=== PATIENT | female | born 1950 | race Caucasian/White ===

== ENCOUNTER 2016-11-24 13:13 | Outpatient (CLI) | payer MEDICARE, OTHER ==
--- NOTE | 2016-11-27 08:26 | Mammography Report ---
DIGITAL SCREENING MAMMOGRAM: 11/24/2016 CLINICAL INDICATION: A 65-year-old for screening. COMPARISON: 02/2013, 02/2011, 10/2009. TECHNIQUE: Routine CC and MLO projections were obtained of the breasts. The breasts again demonstrate scattered fibroglandular densities bilaterally. Coarse and punctate, t ypically benign calcifications are present. No suspicious masses, clustered microcalcifications, or regions of architectural distortion are identified. IMPRESSION: BENIGN FINDINGS. RECOMMENDATION: ROUTINE ANNUAL SCREENING UNLESS OTHERWISE CLINICALLY INDICATED. BIRADS CATEGORY: 2, BENIGN FINDINGS. STANDARD QUALIFYING STATEMENTS 1. This examination was reviewed with the aid of Computed-Aided Detection (CAD). 2. A negative or benign imaging report should not delay biopsy if clinically suspicious findings are present. Consider surgical consultation if warranted. More than 5% of cancers are not identified b y imaging. 3. Dense breasts may obscure an underlying neoplasm. JOB #: [id number] EXT JOB #:[id number]
== END 2016-11-24 13:14 | disposition home or self-care (01) ==
LOC: DI 13:13
PROVIDERS: ATTEND Internal Medicine
DX: Z12.31 Encounter for screening mammogram for malignant neoplasm of breast (principal)
CPT/HCPCS: 77067

== ENCOUNTER 2017-01-03 13:43 | Emergency (ER) | payer OTHER ==
[2017-01-03] MEDS ORDERED: diltiaZEM INJ 5 MG/ML VIAL IVP STA (14:08)
--- NOTE | 2017-01-03 14:11 | ED Physician Documentation ---
PD HPI CHEST PAIN - Stated complaint Stated Complaint: SOA/LIGHT HEADED /RAPID HEART RATE - Chief complaint Chief Complaint: Cardiac - History obtained from History obtained from: Patient, Family - History of Present Illness Timing - onset: Other (Healthy 66-year-old woman who today 1230 developed a sensation of rapid heart rate and slight dizziness without chest pain or trouble breathing. She has had similar occasional episodes before, lasting 1 or 2 hours at a time coming every month or 2. She has never had a workup though before. She has no other history of heart or lung problems. She does not drink caffeine or take other stimulants to excess. She does have the equivalent of 1 cup of coffee per day.) Review of Systems Ten Systems: 10 systems reviewed and negative Constitutional: reports: Reviewed and negative Throat: reports: Reviewed and negative Cardiac: reports: Palpitations. denies: Chest pain / pressure, Pedal edema, Calf pain Respiratory: denies: Dyspnea PD PAST MEDICAL HISTORY - Past Medical History Past Medical History: No - Present Medications Home Medications: Ambulatory Orders Medication Instructions Recorded Confirmed Flecainide [Tambocar] 2 tab PO DAILY PRN #20 tablet 01/03/17 - Allergies Allergies/Adverse Reactions: Allergies Allergy/AdvReac Type Severity Reaction Status Date / Time No Known Drug Allergies Allergy Verified 01/03/17 13:51 - Living Situation Living Situation: reports: With spouse/s.o. - Social History Does the pt smoke?: No Does the pt have substance abuse?: No - Family History Family history: reports: Non contributory PD ED PE NORMAL - Vitals Vital signs reviewed: Yes - General General: Alert and oriented X 3, No acute distress - HEENT HEENT: PERRL, EOMI - Neck Neck: Supple, no meningeal sign, No bony TTP - Cardiac Cardiac: No murmur, Other (Rapid and irregular) - Respiratory Respiratory: No respiratory distress, Clear bilaterally - Abdomen Abdomen: Non tender - Back Back: No CVA TTP, No spinal TTP - Derm Derm: Normal color, Warm and dry - Extremities Extremities: No edema, No calf tenderness / cord - Neuro Neuro: Alert and oriented X 3, Normal speech - Psych Psych: Normal mood, Normal affect Results - Vitals Vitals: Vital Signs - 24 hr 01/03/17 01/03/17 01/03/17 13:46 14:18 14:23 Temperature 36.6 C Heart Rate 141 H 146 H 133 H Respiratory 18 Rate Blood Pressure 168/99 H 139/91 H 139/91 H O2 Saturation 99 01/03/17 01/03/17 01/03/17 14:28 15:14 17:04 Temperature 36.3 C L Heart Rate 122 H 90 75 Respiratory 16 18 Rate Blood Pressure 136/103 H 136/88 H 125/87 H O2 Saturation 97 98 Oxygen O2 Source Room air - EKG (time done) 1355 Rate: Rate (enter#) (137) Rhythm: Atrial fibrillation [place]: Normal QRS: LVH Compare to prior EKG: Old EKG unavailable Computer interpretation: Agree with computer 1540 Rate: Rate (enter#) (59) Rhythm: NSR (with PVC) Ischemia: No: ST elevation c/w ischemia Computer interpretation: Agree with computer - Labs Labs: Laboratory Tests 01/03/17 01/03/17 01/03/17 14:10 14:10 14:10 WBC 6.6 RBC 4.34 Hgb 13.7 Hct 40.4 MCV 93.1 MCH 31.5 H MCHC 33.8 RDW 14.7 Plt Count 223 MPV 7.5 L Neut # 2.6 Lymph # 2.3 [place] # 0.9 Eos # 0.8 H Baso # 0.1 Absolute Nucleated RBC 0.00 Nucleated RBCs 0.1 Sodium 137 Potassium 4.0 Chloride 103 Carbon Dioxide 25 Anion Gap 9.0 BUN 21 H Creatinine 1.0 Estimated GFR (MDRD) 56 L Glucose 100 Calcium 9.3 Magnesium 2.3 Total Bilirubin 0.6 AST 23 ALT 20 Alkaline Phosphatase 75 Total Protein 7.4 Albumin 4.3 Globulin 3.1 Albumin/Globulin Ratio 1.4 Lipase 29 TSH 1.33 PD MEDICAL DECISION MAKING - ED course ED course: 66-year-old woman presents with what sounds like an exacerbation of paroxysmal atrial fibrillation. She has rapid ventricular response. She was administered 10 mg of IV diltiazem which resulted generally and rate control although was still variable. She had episodes of sinus rhythm and still episodes of variable rate atrial fibrillation. She felt better, but not completely better after this and this was followed by 100 mg of flecainide p.o. She felt better after this and was having much less in the way of ectopy. We discussed the need for follow-up, specifically the need for follow-up echocardiogram in for a discussion for anticoagulation, in the interim she will take aspirin, 81 mg a day and we will give her prescription for a pill in the pocket regime. Departure - Departure Disposition: 01 Home, Self Care Clinical Impression: Paroxysmal atrial fibrillation Condition: Good Record reviewed to determine appropriate education?: Yes Instructions: Atrial Fibrillation Dc Prescriptions: Flecainide [Tambocar] 2 tab PO DAILY PRN #20 tablet PRN Reason: palpitations Comments: Take a baby aspirin every day. Follow-up with Dr. Georges for echocardiography and a discussion of anticoagulation. Return if worse. You can take 2 tablets of the flecainide once a day if you have symptomatic palpitations. Return if worse or if you have pain. Your blood pressure was elevated today on check into the emergency department. This does not mean that you have hypertension, it is a common phenomenon to come to the emergency department and have elevated blood pressure. I recommend that she see her primary care physician within the week to have it rechecked when you are feeling better. Discharge Date/Time: 01/03/17 17:06
[2017-01-03] MEDS ORDERED: diltiaZEM INJ 5 MG/ML VIAL ONE (14:21)
[2017-01-03 14:30] LABS: BASOPHILS # (AUTO) 0.1 10^3/uL (0.0-0.1); EOSINOPHILS # (AUTO) 0.8 10^3/uL (0.0-0.7); EOSINOPHILS % (AUTO) 11.9 %; HCT - HEMATOCRIT 40.4 % (37.0-47.0); HGB - HEMOGLOBIN 13.7 g/dL (12.0-16.0); LYMPHOCYTES # (AUTO) 2.3 10^3/uL (1.5-3.5); LYMPHOCYTES % (AUTO) 34.6 %; MEAN CORPUSCULAR HEMOGLOBIN 31.5 pg (27.0-31.0); MEAN CORPUSCULAR HGB CONC 33.8 g/dL (32.0-36.0); MEAN CORPUSCULAR VOLUME 93.1 fL (81.0-99.0); MEAN PLATELET VOLUME 7.5 fL (7.9-10.8); MONOCYTES # (AUTO) 0.9 10^3/uL (0.0-1.0); MONOCYTES % (AUTO) 13.6 %; NEUTROPHILS # (AUTO) 2.6 10^3/uL (1.5-6.6); NEUTROPHILS % (AUTO) 38.9 %; NUCLEATED RED BLOOD CELLS AUTO 0.1 /100WBC; RED BLOOD COUNT 4.34 10^6/uL (4.20-5.40); RED CELL DISTRIBUTION WIDTH 14.7 % (12.0-15.0); UNCORRECTED WHITE BLOOD COUNT 6.6 x10^3/uL; WHITE BLOOD COUNT 6.6 x10^3/uL (4.8-10.8)
[2017-01-03 14:39] LABS: ALBUMIN/GLOBULIN RATIO 1.4 (1.0-2.2); BILIRUBIN,TOTAL 0.6 mg/dL (0.2-1.0); CALCIUM 9.3 mg/dL (8.5-10.3); MAGNESIUM 2.3 mg/dL (1.7-2.8); TOTAL PROTEIN 7.4 g/dL (6.7-8.2)
[2017-01-03] MEDS ORDERED: FLECAINIDE 50 MG TABLET PO STA (15:39)
[2017-01-03] MEDS ORDERED: FLECAINIDE 50 MG TABLET PO ONE ×2 (15:46)
[2017-01-03 17:06] VITALS: BP 125/87
== END 2017-01-03 17:06 | disposition home or self-care (01) ==
LOC: ED 13:43
DX: I48.0 Paroxysmal atrial fibrillation (principal); R03.0 Elevated blood-pressure reading, without diagnosis of hypertension
CPT/HCPCS: 36415; 80053; 83690; 83735; 84443; 85025; 93005; 96374; 99284; A9270

== ENCOUNTER 2017-01-06 08:21 | Inpatient (IN) | payer MEDICARE, OTHER ==
[2017-01-06] MEDS ORDERED: SODIUM CHLORIDE 0.9% 1,000 ML IV ONE (08:47)
[2017-01-06 09:01] LABS: BASOPHILS # (AUTO) 0.1 10^3/uL (0.0-0.1); BASOPHILS % (AUTO) 1.1 %; EOSINOPHILS # (AUTO) 0.7 10^3/uL (0.0-0.7); EOSINOPHILS % (AUTO) 10.6 %; HCT - HEMATOCRIT 40.8 % (37.0-47.0); HGB - HEMOGLOBIN 13.8 g/dL (12.0-16.0); LYMPHOCYTES # (AUTO) 1.8 10^3/uL (1.5-3.5); LYMPHOCYTES % (AUTO) 25.8 %; MEAN CORPUSCULAR HEMOGLOBIN 31.5 pg (27.0-31.0); MEAN CORPUSCULAR HGB CONC 33.9 g/dL (32.0-36.0); MEAN CORPUSCULAR VOLUME 93.1 fL (81.0-99.0); MEAN PLATELET VOLUME 7.5 fL (7.9-10.8); MONOCYTES # (AUTO) 0.8 10^3/uL (0.0-1.0); MONOCYTES % (AUTO) 11.5 %; NEUTROPHILS # (AUTO) 3.5 10^3/uL (1.5-6.6); NUCLEATED RED BLOOD CELLS AUTO 0.1 /100WBC; RED BLOOD COUNT 4.38 10^6/uL (4.20-5.40); RED CELL DISTRIBUTION WIDTH 14.8 % (12.0-15.0); UNCORRECTED WHITE BLOOD COUNT 6.9 x10^3/uL; WHITE BLOOD COUNT 6.9 x10^3/uL (4.8-10.8)
[2017-01-06 09:08] LABS: CALCIUM 9.3 mg/dL (8.5-10.3); CREATININE 0.9 mg/dL (0.4-1.0)
--- NOTE | 2017-01-06 09:16 | ED Physician Documentation ---
History of Present Illness - Stated complaint Stated Complaint: RAPID HEART RATE/SYNCOPE - Chief complaint Chief Complaint: Cardiac - Additonal information Additional information: hx from pt and SO pt reports that she was dx with a fib 3 days ago but likely had a fib in the past as she has had int palpitations she was seen in the ER, EKG showed a fib RVR, rate controlled with dilt, pt in and out of fib, given flecainide with decreased ectopy and so dc home to p PMD for further outpt work up and echo and given rx for flecainide PO the next day she had another episdoe of a fib, her flecainide rx still not ready for bead picker, self resolved prior to med being available then today had another episode and this time had syncope and fell (into bird netting so no injury) awoke still with palp, took her flecainide, now int NSR and a fib no chest pain no leg swelling or recent travel minimal caffeine (one cup half caff which is her usual) Review of Systems Constitutional: denies: Fever, Chills Throat: denies: Sore throat Cardiac: reports: Palpitations. denies: Chest pain / pressure Respiratory: denies: Dyspnea GI: denies: Abdominal Pain, Nausea, Vomiting Musculoskeletal: denies: Extremity swelling Neurologic: reports: Syncope. denies: Generalized weakness Endocrine: denies: Easy bruising / bleeding Immunocompromised: denies: Immunocompromised PD PAST MEDICAL HISTORY - Present Medications Home Medications: Ambulatory Orders Medication Instructions Recorded Confirmed Flecainide [Tambocar] 100 mg PO DAILY PRN 01/06/17 01/06/17 - Allergies Allergies/Adverse Reactions: Allergies Allergy/AdvReac Type Severity Reaction Status Date / Time No Known Drug Allergies Allergy Verified 01/03/17 13:51 - Social History Does the pt smoke?: No Does the pt have substance abuse?: No PD ED PE NORMAL - Vitals Vital signs reviewed: Yes - HEENT HEENT: Atraumatic - Neck Neck: Supple, no meningeal sign - Cardiac Cardiac: RRR - Respiratory Respiratory: No respiratory distress, Clear bilaterally - Abdomen Abdomen: Soft, Non tender - Derm Derm: Normal color - Extremities Extremities: Normal ROM s pain, No edema, No calf tenderness / cord - Neuro Neuro: Alert and oriented X 3, No motor deficit - Psych Psych: Normal mood Results - Vitals Vitals: Vital Signs - 24 hr 01/06/17 01/06/17 01/06/17 08:29 09:39 10:04 Temperature 36.6 C Heart Rate 116 H 66 Respiratory 18 12 Rate Blood Pressure 167/97 H 137/81 H Blood Pressure 167/97 H [Left] Blood Pressure 153/94 H [Right] O2 Saturation 98 100 Oxygen O2 Source Room air - EKG (time done) 0834 Rate: Rate (enter#) (78) Rhythm: NSR Intervals: Normal SC QRS: Normal Ischemia: Normal ST segments 0841 Rate: Rate (enter#) (151) Rhythm: Atrial fibrillation Ischemia: ST depression (ant likely rate related) Other comments: Other comments (computer notes non sustained v tach but looks like two PVCs) - Labs Labs: Laboratory Tests 01/06/17 01/06/17 01/06/17 08:45 08:45 08:45 WBC 6.9 RBC 4.38 Hgb 13.8 Hct 40.8 MCV 93.1 MCH 31.5 H MCHC 33.9 RDW 14.8 Plt Count 214 MPV 7.5 L Neut # 3.5 Lymph # 1.8 [place] # 0.8 Eos # 0.7 Baso # 0.1 Absolute Nucleated RBC 0.00 Nucleated RBCs 0.1 Sodium 138 Potassium 4.0 Chloride 105 Carbon Dioxide 26 Anion Gap 7.0 BUN 18 Creatinine 0.9 Estimated GFR (MDRD) 63 L Glucose 101 H Calcium 9.3 Troponin I < 0.04 PD MEDICAL DECISION MAKING - ED course ED course: newly diagnosed a fib, resulting in sycnope, initial plan was to work up and start meds / adjust meds as outpt but now with syncope feel pt needs obs for further prompt work up echo, and med stabilization\\echo done after admit - no major structural abn, LVH Departure - Departure Disposition: 66 [facility] DC/Xfer Clinical Impression: Syncope Qualifiers: Syncope type: unspecified Qualified Code(s): R55 - Syncope and collapse Atrial fibrillation Qualifiers: Atrial fibrillation type: unspecified Qualified Code(s): I48.91 - Unspecified atrial fibrillation Condition: Good Discharge Date/Time: 01/06/17 12:13
[2017-01-06] MEDS ORDERED: ONDANSETRON 4 MG/2 ML VIAL IVP PRN (11:00)
[2017-01-06] MEDS ORDERED: ZOLPIDEM 5 MG TABLET PO PRN (11:00)
[2017-01-06] MEDS ORDERED: SODIUM CHLORIDE FLUSH 0.9% 10 ML SYRINGE IVP PRN (11:00)
--- NOTE | 2017-01-06 12:06 | HISTORY & PHYSICAL EXAMINATION ---
Chief Complaint - Chief Complaint Chief Complaint: syncope History of Present Illness - Admitted From Admitted From:: emergence department - History Obtained From History obtained from: patient and her - History of Present Illness HPI Comment/Other: This is a pleasure 66-year-old [place] female without significant past medical history, who present emergence department for evaluation of one episode of syncope which happened at today morning around 8am. Patient report she was in the emergence room 3 days ago for the a fib. Patient was prescribed with Flecainide to go to home. She has not had Flecainide until today. Today morning when patient is doing some garden work, she passed out. She denied any injury. After this syncope happened, she took two pills of Flecainide. Patient report she seems like to have a fib and intermittent palpitation in the past. Patient denies chest pain, shortness of breathing, palpitation now. No fever, chill, headache, nausea, vomiting, abdominal pain, diarrhea, vision changing, dysuria, GI bleeding. Initiate EKG reveals A Fib with RVR at HR 151, ECHO is pending. Lab test is unremarkable. Review of Systems - Constitutional Constitutional: denies: Fever, Chills, Malaise, Poor appetite, Diaphoresis, Night sweats, Weight gain, Weight loss - Eyes Eyes: denies: Pain, Irritation, Amaurosis, Blurred vision, Spots in vision, Field loss, Vision loss, Dipolpia - Ears, Nose & Throat Ears, Nose & Throat: denies: Ear pain, Hearing loss, Hearing aids, Tinnitus, Vertigo, Nasal pain, Nosebleeds, Nasal congestion, Postnasal drainage, Sore throat, Hoarseness, Bleeding gums - Cardiovascular Cariovascular: reports: Irregular heart rate, Palpitations, Lightheadedness, Syncope. denies: Chest pain, Edema, Exertional dyspnea, Decr. exercise tolerance, Orthopnea - Respiratory Respiratory: denies: Cough, Sputum production, Wheezing, Snoring, Hemoptysis, Orthopnea, SOB at rest, SOB with exertion, Apnea - Gastrointestinal Gastrointestinal: denies: Abdominal pain, Abdominal distention, Constipation, Diarrhea, Change in bowel habits, Rectal bleeding, Black stools, Bloody stools, Nausea, Vomiting, Nickolas blood emesis, Coffee grounds emesis, Reflux/heartburn, Poor appetite - Genitourinary Genitourinary: denies: Dysuria, Frequency, Urgency, Hematuria, Incontinence, Flank pain, Nocturia - Musculoskeletal Musculoskeletal: denies: Muscle pain, Back pain, Muscle aches, Stiffness, Limited range of motion, Muscle weakness, Gout, Joint pain, Joint swelling - Integumentary Integumentary: denies: Rash, Pruritis, Lesions, Dryness, Pigment changes - Neurological Neurological: denies: General weakness, Focal weakness, Headache, Dizziness, Numbness, Memory problems, Abnormal gait, Seizures, Incoordination, Slurred speech - Psychiatric Psychiatric: denies: Depression, Anxiety, Suicidal, Delusions, Hallucinations, Homicidal - Endocrine Endocrine: denies: Polyuria, Polydypsia, Polyphagia, Intolerance to cold, Intolerance to heat - Hematologic/Lymphatic Hematologic/Lymphatic: denies: Anemia, Bruising, Petechiae, Blood clots, Lymphadenopathy, Bleeding tendencies, Recurrent infections History - Past Medical History MRSA Hx?: No - Past Surgical History General: reports: Hiatal hernia repair - Family & Social History Family History: Mother: ( at 100 yrs old from aging, Dad from suicide), Father: , Alcoholism Family History Comment/Other: Patient is retired RN, 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 She had two children. One daughter is 37 year old and healthy. One son is 32 years old and healthy either. She is current living at [facility] with her . Patient's state patient has lots of stress recently. patient's mother at this year November. Living arrangement: At home Social History Notes: pt denies any issue of alcohol, no cigarette smoking, no illicit drug - Substance History Use: Uses substance without health or social issues: NONE Abuse: Recurrent use of substance despite neg consequences: NONE Dependence: Experiences withdrawal or developed tolerances: NONE - POLST Patient has POLST: No POLST Status: Full Code Meds/Allgy - Home Medications Home Medications: Ambulatory Orders Medication Instructions Recorded Confirmed Flecainide [Tambocar] 100 mg PO DAILY PRN 01/06/17 01/06/17 - Allergies Allergies/Adverse Reactions: Allergies Allergy/AdvReac Type Severity Reaction Status Date / Time No Known Drug Allergies Allergy Verified 01/03/17 13:51 Exam - Vital Signs Reviewed Vital Signs: Yes Vital Signs: Vital Signs x48h Pulse Resp BP Pulse Ox 01/06/17 11:50 59 L 18 124/76 17 L 01/06/17 11:27 59 L 7 L 135/78 H 100 01/06/17 11:25 58 L 10 L 135/78 H 99 - Physical Exam General Appearance: positive: No acute distress, Alert. negative: Lethargic Eyes Bilateral: positive: Normal inspection, PERRL. negative: No lid inflammation, Conjunctivae nml ENT: positive: ENT inspection nml, Pharynx nml, No signs of dehydration. negative: Purulent nasal drainage, Pharyngeal erythema Neck: positive: Nml inspection, Thyroid nml, No JVD, Trachea midline. negative : Lymphadenopathy (R), Lymphadenopathy (L), Stiff neck, Swelling/bruising, Tracheal deviation Respiratory: positive: Chest non-tender, No respiratory distress, Breath sounds nml. negative: Wheezes, Rales, Rhonchi Cardiovascular: positive: Regular rate & rhythm, No murmur, No gallop. negative : Tachycardia, Bradycardia, Systolic murmur, Diastolic murmur Peripheral Pulses: positive: 2+ Abdomen: positive: Non-tender, No organomegaly, Nml bowel sounds, No distention. negative: Tenderness, Guarding, Rebound Back: positive: Nml inspection. negative: CVA tenderness (R), CVA tenderness (L ) Skin: positive: Color nml, No rash, Warm, Dry. negative: Diaphoresis, Pallor, Skin rash, Embolic lesions Extremities: positive: Non-tender, Full ROM, Nml appearance. negative: Calf tenderness, Shawn's sign/cords Neurologic/Psychiatric: positive: Oriented x3, Motor nml, Sensation nml, Mood/ affect nml. negative: Sensory loss, Facial droop, Slurred/abnml speech, Depressed mood/affect Conclusion/Plan - Problem List (1) Atrial fibrillation Conclusion/Plan: EKG reveals pt has afib with RVR. pt took two pills of Flecainide today, now her HR is around 60 will tele, closely monitor HR, and adjust medication as needed Qualifiers: Atrial fibrillation type: unspecified Qualified Code(s): I48.91 - Unspecified atrial fibrillation (2) Syncope Conclusion/Plan: it appear the cause of uncontrolled afib with RVR, at the same time to do ECHO ECHO is pending, will follow up check Orthostatus Qualifiers: Syncope type: unspecified Qualified Code(s): R55 - Syncope and collapse (3) Fall Conclusion/Plan: pt denies any injury, fall precaution (4) DVT prophylaxis Conclusion/Plan: SCD and Lovenox - Lab Results Fish Bones: 01/06/17 08:45 01/06/17 08:45 Issues/Core Measures - Anticipated LOS Anticipated Stay Length: 2 or more midnights (acute afib with RVR, and syncope)
[2017-01-06] MEDS: FAMOTIDINE 20 MG TABLET PO SCH (12:29)
[2017-01-06] MEDS: ENOXAPARIN 40 MG/0.4 ML SYRINGE SUBQ SCH (12:31)
[2017-01-06] MEDS: SODIUM CHLORIDE FLUSH 0.9% 10 ML SYRINGE IVP SCH ×2 (15:31→21:24)
[2017-01-06] MEDS ORDERED: NITROGLYCERIN SL 0.4 MG TABLET SL PRN (21:37)
[2017-01-06] MEDS: CALCIUM CARBONATE CHEW 500 MG TABLET PO SCH (21:57)
[2017-01-07 02:20] VITALS: BP 134/73
[2017-01-07] MEDS: SODIUM CHLORIDE FLUSH 0.9% 10 ML SYRINGE IVP SCH (05:28)
[2017-01-07 06:14] LABS: BASOPHILS # (AUTO) 0.1 10^3/uL (0.0-0.1); EOSINOPHILS # (AUTO) 0.7 10^3/uL (0.0-0.7); EOSINOPHILS % (AUTO) 10.7 %; HCT - HEMATOCRIT 39.6 % (37.0-47.0); HGB - HEMOGLOBIN 13.5 g/dL (12.0-16.0); LYMPHOCYTES # (AUTO) 2.1 10^3/uL (1.5-3.5); LYMPHOCYTES % (AUTO) 30.3 %; MEAN CORPUSCULAR HEMOGLOBIN 32.2 pg (27.0-31.0); MEAN CORPUSCULAR VOLUME 94.5 fL (81.0-99.0); MEAN PLATELET VOLUME 7.6 fL (7.9-10.8); MONOCYTES # (AUTO) 0.8 10^3/uL (0.0-1.0); MONOCYTES % (AUTO) 11.3 %; NEUTROPHILS # (AUTO) 3.2 10^3/uL (1.5-6.6); NEUTROPHILS % (AUTO) 46.7 %; RED BLOOD COUNT 4.19 10^6/uL (4.20-5.40); RED CELL DISTRIBUTION WIDTH 14.8 % (12.0-15.0); UNCORRECTED WHITE BLOOD COUNT 6.8 x10^3/uL; WHITE BLOOD COUNT 6.8 x10^3/uL (4.8-10.8)
[2017-01-07 06:21] LABS: ALBUMIN/GLOBULIN RATIO 1.3 (1.0-2.2); BILIRUBIN,TOTAL 0.8 mg/dL (0.2-1.0); CALCIUM 9.2 mg/dL (8.5-10.3); CREATININE 0.8 mg/dL (0.4-1.0); MAGNESIUM 2.2 mg/dL (1.7-2.8); TOTAL PROTEIN 6.5 g/dL (6.7-8.2)
[2017-01-07] MEDS: ENOXAPARIN 40 MG/0.4 ML SYRINGE SUBQ SCH (08:39)
[2017-01-07] MEDS: CALCIUM CARBONATE CHEW 500 MG TABLET PO SCH (08:40)
[2017-01-07] MEDS: FAMOTIDINE 20 MG TABLET PO SCH (08:40)
[2017-01-07] MEDS ORDERED: POLYETHYLENE GLYCOL 3350 17 GM PACKET PO SCH (09:00)
--- NOTE | 2017-01-07 15:10 | Discharge Plan ---
Discharge Plan Disposition: 01 Home, Self Care Condition: Good Diet: Regular Activity Restrictions: No Restrictions Driving Restrictions: Yes (PT advised not to drive due to syncope ) Weight Bearing: Full Weight No Smoking: If you smoke, Please STOP! Call for help.
--- NOTE | 2017-01-07 15:16 | DISCHARGE SUMMARY ---
Discharge Summary Admit Date: 01/06/17 Discharge Date: 01/07/17 Discharging Provider: Hamlet Mcclain PA-C Primary Care Provider: Elle Georges Condition at Discharge: Good Discharge Disposition: 01 Home, Self Care - DIAGNOSES Admission Diagnoses: Syncope: Suspected related to Afib with RVR Attrial fibrillation: RVR in ED Fall Secondary to syncope Discharge Diagnoses with Status of Each Condition: Syncope: most likely etiology is atrial fibrillation wth RVR and vasovagal syncope. She was in afib which had sudden onset nad had a sudden postion change just prior to her "black out". Advised PT she is not to drive until seen by PCP, She should not drive until she is free of syncope for 6 months or source is treated. Atrial fibrillation: paroxysmal, Treated with PRN Flecainide. [id number] score of 2 with a 2.2% annual stroke risk. recommended oral anticoagulation. She wishes to speak to her PCP at followup before deciding Fall: Secondary to above - HPI History of Present Illness: Pt was at home working in the yard. She noted palpitations and felt poor. She got up to go into the house to take her PRN Flecainide. She felt dizziness and tingling in her lips. She then blacked out. PT came to the ED for further evaluation. - HOSPITAL COURSE Hospital Course: PT was admitted for further observation on telemetry. She remained in NSR with sinus bradycardia during her stay. She was asymptomatic with slower heart rates. PT did not experience further syncopal or near syncopal episodes during the remaining of her stay. She had an echocardiogram that was negative for LV dysfunction or valvular heart disease. At time of discharge she was doing well without complaints. We discussed treatment options for AF and she will meet with her PCP to discuss these further. We also discussed need for oral anticoagulation given her [id number] score of 2 for age and gender. This is a 2.2% annual stroke risk., She wished to maintain ASA daily and discuss further with her PCP at follow-up - ALLERGIES Allergies/Adverse Reactions: Allergies Allergy/AdvReac Type Severity Reaction Status Date / Time No Known Drug Allergies Allergy Verified 01/03/17 13:51 - MEDICATIONS Home Medications: Ambulatory Orders Medication Instructions Recorded Confirmed Flecainide [Tambocar] 100 mg PO DAILY PRN 01/06/17 01/06/17 - PHYSICAL EXAM AT DISCHARGE General Appearance: positive: No acute distress, Alert Eyes Bilateral: positive: Normal inspection, PERRL, EOMI ENT: positive: No signs of dehydration Neck: positive: Nml inspection, No JVD Respiratory: positive: No respiratory distress, Breath sounds nml Cardiovascular: positive: Regular rate & rhythm, No murmur, No gallop Peripheral Pulses: positive: 2+ Skin: positive: Warm, Dry Extremities: positive: No pedal edema Neurologic/Psychiatric: positive: Oriented x3, CN's nml (2-12) - LABS Result Diagrams: 01/07/17 05:28 01/07/17 05:28 - DIAGNOSTIC IMAGING Diagnostic Imaging Results: Final report reviewed - TIME SPENT Time Spent in Discharge (Minutes): 30 (To include time spent with anticoagulation teaching)
== END 2017-01-07 16:20 | disposition home or self-care (01) | DRG 310 ==
LOC: ED 08:21 → MS3 11:00
PROVIDERS: ADMIT Nurse Practitioner Gerontology; ATTEND Physician Assistant
DX: I48.0 Paroxysmal atrial fibrillation (principal); I48.91 Unspecified atrial fibrillation; R55 Syncope and collapse; Z91.81 History of falling
CPT/HCPCS: 36415; 80048; 80053; 83735; 84484; 85025; 93005; 93306; 96360; 99284

== ENCOUNTER 2017-12-21 08:53 | Outpatient (CLI) | payer MEDICARE ==
--- NOTE | 2017-12-22 17:05 | Mammography Report ---
Procedure Date: 12/21/2017 Accession Number: [id number] / [id number] Procedure: MGN - Screening Mammo Dig Bilat CPT Code: FULL RESULT: EXAM: Screening Mammo Dig Bilat DATE: 12/21/2017 9:14 AM CLINICAL HISTORY: 67-year-old female with family history of breast cancer in an aunt in her 50s. TECHNIQUE: Bilateral CC and MLO views were obtained. COMPARISON: 11/24/2016. FINDINGS: The breasts demonstrate scattered fibroglandular densities bilaterally. Bilateral typically benign coarse calcifications are noted. A left-sided pacemaker is now seen overlying the pectoralis musculature. No suspicious masses, clustered microcalcifications, or regions of architectural distortion are identified. IMPRESSION: Benign findings RECOMMENDATION: Routine annual screening unless otherwise clinically indicated. BIRADS CATEGORY 2: Benign findings STANDARD QUALIFYING STATEMENTS: 1. This examination was reviewed with the aid of Computer-Aided Detection (CAD). 2. A negative or benign imaging report should not delay biopsy if clinically suspicious findings are present. Consider surgical consultation if warrented. More than 5% of cancers are not identified by imaging. 3. Dense breasts may obscure an underlying neoplasm.
== END 2017-12-21 08:54 | disposition home or self-care (01) ==
LOC: DI.N 08:53
PROVIDERS: ATTEND Internal Medicine
DX: Z12.31 Encounter for screening mammogram for malignant neoplasm of breast (principal); Z80.3 Family history of malignant neoplasm of breast
CPT/HCPCS: 77067

== ENCOUNTER 2018-08-23 13:52 | Outpatient (CLI) | payer MEDICARE ==
--- NOTE | 2018-08-23 14:35 | XRAY Report ---
Reason: COUGH Procedure Date: 08/23/2018 Accession Number: [id number] / [id number] Procedure: XR - Chest 2 View X-Ray CPT Code: 50571 FULL RESULT: EXAM: CHEST RADIOGRAPHY EXAM DATE: 08/23/2018 01:39 PM. CLINICAL HISTORY: COUGH. COMPARISON: None. TECHNIQUE: 2 views. FINDINGS: Lungs/Pleura: No focal opacities evident. No pleural effusion. No pneumothorax. Normal volumes. Mediastinum: Heart and mediastinal contours are unremarkable. Dual-lumen pacemaker in place. Other: None. IMPRESSION: No acute cardiopulmonary abnormality. RADIA The call report notification system was initiated by Dr. Connor Reyes at 02:33 PM on 08/23/2018.
== END 2018-08-23 13:53 | disposition home or self-care (01) ==
LOC: DI 13:52
PROVIDERS: ATTEND Internal Medicine
DX: R05 Cough (principal)
CPT/HCPCS: 71046

== ENCOUNTER 2019-01-18 14:19 | Outpatient (CLI) | payer MEDICARE ==
--- NOTE | 2019-01-22 17:25 | Mammography Report ---
Reason: ROUTINE MAMMO Procedure Date: 01/18/2019 Accession Number: [id number] / [id number] Procedure: HELIO - Screening Mammo w/Genny CPT Code: FULL RESULT: EXAM: Screening Mammo w/Genny DATE: 01/18/2019 2:53 PM CLINICAL HISTORY: Routine screening TECHNIQUE: (B) - Bilateral CC and MLO views were obtained. COMPARISON: 12/21/2017 and 11/24/2016 PARENCHYMAL PATTERN: (A) - The breasts demonstrate scattered fibroglandular densities bilaterally. FINDINGS: No significant interval change on the left. There are no suspicious masses, calcifications, or areas of distortion. Left pacemaker as before. In the posterior right breast only seen on the CC view is an area of possible developing architectural distortion 7.5 cm directly posterior to the nipple CC genny image 53 for which spot compression and true lateral views is suggested. A 6 mm well-circumscribed nodule is seen in the anterior right breast 10:00 position 3 cm from the nipple for which ultrasound is suggested. No suspicious microcalcifications. IMPRESSION: Incomplete examination. BI-RADS category 0. Negative left breast. RECOMMENDATION: (ADDMU) - Additional views using both Mammography and Ultrasound recommended. Right breast BI-RADS CATEGORY: (0) - Incomplete Examination - need additional evaluation. STANDARD QUALIFYING STATEMENTS: 1. This examination was not reviewed with the aid of Computer-Aided Detection (CAD). 2. A negative or benign imaging report should not preclude biopsy if clinically suspicious findings are present. 3. Dense breasts may obscure an underlying neoplasm. 4. This examination was reviewed with the aid of 3D breast imaging (tomosynthesis).
== END 2019-01-18 14:20 | disposition home or self-care (01) ==
LOC: DI 14:19
PROVIDERS: ATTEND Internal Medicine
DX: Z12.31 Encounter for screening mammogram for malignant neoplasm of breast (principal); R92.8 Other abnormal and inconclusive findings on diagnostic imaging of breast
CPT/HCPCS: 77063; 77067

== ENCOUNTER 2019-02-02 08:47 | Outpatient (CLI) | payer MEDICARE ==
--- NOTE | 2019-02-02 11:42 | Mammography Report ---
Reason: ABN MAMMO - RT SPECIAL VIEWS Procedure Date: 02/02/2019 Accession Number: [id number] / [id number] Procedure: HELIO - Diag Special Views Dig RT CPT Code: FULL RESULT: EXAM: Diag Special Views Dig RT DATE: 02/02/2019 9:36 AM CLINICAL HISTORY: Diagnostic examination. The patient is recalled from screening mammography for question of developing architectural distortion in the posterior central right breast as well as further characterization of a well-circumscribed right breast nodule. TECHNIQUE: (R) - Right right spot CC, right ML views are obtained. Focused right breast ultrasound is performed. COMPARISON: 01/18/2019 through 10/15/2009. PARENCHYMAL PATTERN: (A) - The breast(s) demonstrate(s) scattered fibroglandular densities. FINDINGS: Additional images localize the identified asymmetry to the 12:00 position approximately 8.5 cm from the nipple, appearance is somewhat suggestive of prominent residual breast parenchyma which has been present dating at least back to 2017 where was partially obscured. Interval enlargement of the finding is difficult to exclude given previously greater breast density, probably benign finding. No associated calcifications. The finding is further characterized by ultrasound which demonstrates no abnormal mass or architectural distortion, probably benign. Focused right breast ultrasound is performed of the well-circumscribed 0.6 cm nodule identified tomographically on the previous study on CC image 42 which demonstrates a typically benign wider than tall cyst with possible thin septation and minimal wall calcification, 0.3 x 0.4 cm. There are no suspicious masses, calcifications, or areas of distortion. IMPRESSION: Probably Benign. BI-RADS category 3. Diagnostic right breast examination at the time of annual left breast screening mammography. RECOMMENDATION: (6MOS) - Recommend 6 month follow-up exam. BI-RADS CATEGORY: (3) - Probably Benign. STANDARD QUALIFYING STATEMENTS: 1. This examination was not reviewed with the aid of Computer-Aided Detection (CAD). 2. A negative or benign imaging report should not preclude biopsy if clinically suspicious findings are present. 3. Dense breasts may obscure an underlying neoplasm. 4. This examination was reviewed with the aid of 3D breast imaging (tomosynthesis).
== END 2019-02-02 08:48 | disposition home or self-care (01) ==
LOC: DI 08:47
PROVIDERS: ATTEND Internal Medicine
DX: R92.8 Other abnormal and inconclusive findings on diagnostic imaging of breast (principal)
CPT/HCPCS: 76642

== ENCOUNTER 2019-11-23 13:13 | Outpatient (CLI) | payer MEDICARE ==
--- NOTE | 2019-11-26 09:19 | Ultrasound Report ---
LIMITED ULTRASOUND OF RIGHT BREAST: 11/23/2019 CLINICAL: Patient returns for a 6 month follow up of the right breast. Comparison is made to exams dated: 11/23/2019 mammogram, 02/02/2019 ultrasound, and 02/02/2019 mammogra [facility]. Color flow and real-time ultrasound of the right breast were performed. [place] scale images of the ana l-time examination were reviewed. There is a 0.4 cm x 0.4 cm x 0.3 cm oval cyst in the right breast at 10 o'clock anterior depth 2 cm f rom the nipple. This oval cyst is hypoechoic with a well-defined boundary. This abnormality is not significantly changed. Color flow imaging demonstrates that there is no vascularity present. This cy st was previously labeled at 11:00 anterior depth 2 cm from the nipple. There is also an ovoid, wider than tall hypoechoic mass in the right axillary tail/axilla measuring approximately 9mm x 3mm x 6mm which is favored it represent a normal lymph node versus complicated cyst. It is noted at 9:00 11 cm from the nipple. There is no sonographic correlate for the previously described focal asymmetry seen at the 1 o'clock position, posterior depth. No axillary adenopathy is visualized. IMPRESSION: SUSPICIOUS OF MALIGNANCY There is no sonographic correlate for the suspicious focal asymmetry seen in the posterior depth of t he upper, inner quadrant of the right breast. Further evaluation with stereotactic guided breast biop sy is recommended. The 0.4 cm x 0.4 cm x 0.3 cm oval cyst in the right breast at 10 o'clock anterior depth most likely i s a complicated cyst and is probably benign. Recommend follow up right breast ultrasound in 6 months to document continued stability. The 0.9 x 0.3 x 0.6 cm complicated cyst versus lymph node is seen at 9 o'clock 11cm from the nipple i s probably benign. Recommend follow up right breast ultrasound in 6 months to document continued sta bility. Findings and biopsy recommendations were discussed with the patient by Dr. Bernard during today's visit . The patient is scheduled for 12/26/2019. This exam was interpreted at Station ID: [id number]. Electronically Signed By: Antony Anderson M.D. aty/:11/23/2019 16:45:39 Ultrasound BI-RADS: 4 Suspicious for malignancy BI-RADS CATEGORY: (4) - 4 None [id number] Immediate follow-up LATERALITY: ()
--- NOTE | 2019-11-26 09:19 | Mammography Report ---
BILATERAL DIGITAL DIAGNOSTIC MAMMOGRAM 3D/2D: 11/23/2019 CLINICAL: 6 month follow-up to evaluate a focal asymmetry in the right breast. Comparison is made to exams dated: 02/02/2019 mammogram, 01/18/2019 mammogram, 12/21/2017 mammogram, an d 11/24/2016 mammogram - [facility]. There are scattered fibroglandular elements in both breasts. There is a 0.6 cm irregular equal density focal asymmetry in the right breast at 12 o'clock posterior depth. This is more prominent. There is mild architectural distortion associated with the focal as ymmetry. No other significant masses, calcifications, or other findings are seen in either breast. IMPRESSION: INCOMPLETE: NEEDS ADDITIONAL IMAGING EVALUATION The 0.6 cm irregular equal density focal asymmetry in the right breast is indeterminate. An ultrasound is recommended for further evaluation and is scheduled to immediately follow this study . This exam was interpreted at Station ID: [id number]. NOTE: For mammograms, a report in lay terms will be sent to the patient. Approximately 15% of breast malignancies will not be visualized mammographically. In the management of a palpable breast mass, a negative mammogram must not discourage biopsy of a clinically suspicious lesion. Electronically Signed By: Antony Anderson M.D. aty/:11/23/2019 14:21:50 ACR BI-RADS Category 0: Incomplete 3340F PARENCHYMAL PATTERN: (A) - The breast(s) demonstrate(s) scattered fibroglandular densities. BI-RADS CATEGORY: (0) - 0 Ultrasound [id number] Immediate follow-up LATERALITY: (R)
== END 2019-11-23 13:14 | disposition home or self-care (01) ==
LOC: DI 13:13
PROVIDERS: ATTEND Internal Medicine
DX: R92.8 Other abnormal and inconclusive findings on diagnostic imaging of breast (principal); N64.89 Other specified disorders of breast; N60.01 Solitary cyst of right breast
CPT/HCPCS: 76642; 77066

== ENCOUNTER 2019-12-18 12:57 | Outpatient (CLI) | payer MEDICARE ==
[2019-12-18] MEDS ORDERED: BUFFERED LIDOCAINE 10 ML SYRINGE ONE ×2 (13:16→14:25)
[2019-12-18] MEDS ORDERED: BUFFERED LIDOCAINE 10 ML SYRINGE IU ONE (16:03)
--- NOTE | 2019-12-25 14:06 | Mammography Report ---
DIGITAL TOMOGRAPHIC MAMMOGRAPHY GUIDED STEREOTACTIC GUIDED BIOPSY RIGHT BREAST WITH MARKING DEVICE IN SERTED AND POST MAMMOGRAPHIC IMAGIN12/18/2019 CLINICAL: Right breast asymmetry. Correlation is made to exams dated: 11/23/2019 mammogram, 02/02/2019 mammogram, 01/18/2019 mammogram, mammogram, and 11/24/2016 mammogram - [facility]. A stereotactic guided biopsy was performed for the 0.6 cm irregular shaped area of architectural dist ortion located in the right breast at 12 o'clock posterior depth. This was described on the previous mammography report. The skin was prepped in the usual manner. Local anesthetic was administered to the access site. A skin narda was made in the breast. The abnormality was approached from the later al aspect using an upright digital tomographic mammography unit. A 9 gauge biopsy needle was placed adjacent to the abnormality under computer guidance and confirmatory stereotactic mammography images were obtained to document needle placement. Once the needle was documented to be in the correct loca tion, six specimens were obtained using Siemens upright tomosynthesis biopsy unit. A clip was insert ed into the biopsy cavity. A sterile dressing was applied to the access site. Post procedure mammog raphic imaging demonstrates the location device at the targeted area. The specimens were sent to the laboratory for pathological analysis. IMPRESSION: STEREOTACTIC GUIDED BIOPSY MALIGNANT Stereotactic guided biopsy of the 0.6 cm area of architectural distortion in the right breast at 12 o 'clock posterior depth was successful. Pathology indicates malignant invasive ductal carcinoma. Path ology results are concordant with mammography findings. A surgical consultation is recommended. This exam was interpreted at Station ID: [id number]. SUMMARY: 1. Stereotactic biopsy of the focal asymmetry with architectural distortion in the right breast at 12 o'clock posterior depth demonstrates invasive ductal carcinoma, which is concordant with the imaging findings. Breast Surgery consultation is recommended. 2. Given positive malignancy in the right breast and the presence of additional probably-benign findi ngs described in the prior ultrasound from 11/23/2019 including a 0.9 x 0.3 x 0.6 cm complicated cyst versus lymph node in the right breast at 9 o'clock 11 cm from the nipple as well as a 0.4 x 0.4 x 0.3 cm complicated cyst in the right breast at 10 o'clock 2 cm from the nipple, a breast MRI is recommen ded for further evaluation. Antony del valle,ar/:12/25/2019 11:54:46 BI-RADS CATEGORY: () - MRI [id number] Immediate follow-up LATERALITY: (B)
== END 2019-12-18 12:58 | disposition home or self-care (01) ==
LOC: DI 12:57
PROVIDERS: ATTEND Internal Medicine
DX: C50.811 Malignant neoplasm of overlapping sites of right female breast (principal); N60.01 Solitary cyst of right breast
CPT/HCPCS: 19081

== ENCOUNTER 2021-12-01 08:00 | Outpatient (CLI) | payer MEDICARE ==
[2021-12-01 15:56] LABS: BASOPHILS # (AUTO) 0.1 10^3/uL (0.0-0.1); BASOPHILS % (AUTO) 1.3 %; EOSINOPHILS # (AUTO) 0.5 10^3/uL (0.0-0.7); EOSINOPHILS % (AUTO) 8.8 %; LYMPHOCYTES # (AUTO) 1.4 10^3/uL (1.5-3.5); LYMPHOCYTES % (AUTO) 25.5 %; MEAN CORPUSCULAR HEMOGLOBIN 33.4 pg (27.0-31.0); MEAN CORPUSCULAR HGB CONC 34.1 g/dL (32.0-36.0); MEAN CORPUSCULAR VOLUME 97.9 fL (81.0-99.0); MEAN PLATELET VOLUME 9.5 fL (7.9-10.8); MONOCYTES # (AUTO) 0.8 10^3/uL (0.0-1.0); MONOCYTES % (AUTO) 14.7 %; NEUTROPHILS # (AUTO) 2.8 10^3/uL (1.5-6.6); NEUTROPHILS % (AUTO) 49.5 %; PLT - PLATELET COUNT 227 10^3/uL (130-450); RED BLOOD COUNT 4.19 10^6/uL (4.20-5.40); RED CELL DISTRIBUTION WIDTH 14.3 % (12.0-15.0); WHITE BLOOD COUNT 5.6 x10^3/uL (4.8-10.8)
[2021-12-01 16:48] LABS: ALBUMIN/GLOBULIN RATIO 1.3 (1.0-2.2); ALKALINE PHOSPHATASE 48 IU/L (42-121); ALT ALANINE AMINOTRANSFERASE 21 IU/L (10-60); AST ASPARTATE AMINOTRANSFERASE 21 IU/L (10-42); BILIRUBIN,TOTAL 0.8 mg/dL (0.2-1.0); BUN - BLOOD UREA NITROGEN 16 mg/dL (6-20); CALCIUM 9.2 mg/dL (8.5-10.3); CARBON DIOXIDE - CO2 26 mmol/L (21-32); CHLORIDE 102 mmol/L (101-111); CHOL/HDL RATIO 2.7 (<4.4); CHOLESTEROL 228 mg/dL; GFR - MDRD 55 (>89); GLUCOSE 99 mg/dL (70-100); HDL CHOLESTEROL 83 mg/dL; LDL CHOLESTEROL,CALCULATED 127 mg/dL; LDL/HDL RATIO 1.5 (<4.4); POTASSIUM 4.2 mmol/L (3.5-5.0); SODIUM 135 mmol/L (135-145); TRIGLYCERIDES 90 mg/dL; VLDL CHOLESTEROL 18 mg/dL
== END 2021-12-01 23:59 | disposition home or self-care (01) ==
LOC: LAB.R 08:00
PROVIDERS: ATTEND Internal Medicine
DX: Z00.00 Encounter for general adult medical examination without abnormal findings (principal); C50.919 Malignant neoplasm of unspecified site of unspecified female breast; B00.1 Herpesviral vesicular dermatitis; G47.00 Insomnia, unspecified; M19.90 Unspecified osteoarthritis, unspecified site; J30.2 Other seasonal allergic rhinitis; Z79.899 Other long term (current) drug therapy
CPT/HCPCS: 80053; 80061; 83721; 84443; 85025